=== PATIENT | male | born 1985 | race Caucasian/White ===

== ENCOUNTER 2023-06-16 08:12 | Day surgery (SDC) | payer OTHER ==
[2023-06-16] VITALS (14 sets, daily range): BP systolic 98–150; BP diastolic 59–110
[~2023-06-16] VITALS: Ht 180.3 cm; Wt 115.6 kg
[~2023-06-16 08:12] MED LIST: Benzocaine Oral Spray 0.5ML UD ONE; HYDACE5 PO; IBUP800 PO; KETO10 PO; LORA1 PO; Lactated Ringer's 1,000 ML IV SCH; Midazolam HCl 1MG / ML 2ML Vial ONE; OXYACE5T PO; PANT20; PANT40; Percocet 5-3251 EACH PO; Prinivil10 MG PO; RXOXYACE PO; Silver Sulfadi400 GM TP; propofoL 40 ML IV ONE
--- NOTE | 2023-06-16 09:00 | NUR ---
Ambulatory in Day Surgery. History, Chart, Medications and Allergies reviewed before start of procedure. Lungs clear T/O to Auscultation. Patient confirms NPO status and agrees with scheduled surgery. Pre-Op teaching done. Pt verbalizes understanding. Patient States Post-Procedure ride home has been arranged.
--- NOTE | 2023-06-16 09:33 | NUR ---
06/16/23 0933 Jessica Sherwood HISTORY, CHART, MEDICATIONS AND ALLERGIES REVIEWED BEFORE START OF PROCEDURE. PATIENT CONFIRMS NPO STATUS AND AGREES WITH SCHEDULED PROCEDURE. 3-LEAD EKG REVIEWED WITH PHYSICIAN PRIOR TO START OF PROCEDURE. MONITOR INTACT WITH CONTINUOUS PULSE OXIMETRY,CAPNOGRAPHY, 3-LEAD EKG, INTERMITTENT BP. SUPPLEMENTAL O2 TO BE TITRATED THROUGHOUT PROCEDURE TO MAINTAIN O2 SATURATION ABOVE 90%. PATIENT DETERMINED TO BE ASA APPROPRIATE FOR PROPOFOL SEDATION PRIOR TO START OF PROCEDURE BY .MALLAMPATI CLASS 2 AIRWAY: COMPLETE VISUALIZATION OF THE UVULA.
--- NOTE | 2023-06-16 10:41 | NUR ---
Patient States Post-Procedure ride home has been arranged. Discharge instructions reviewed with patient. Patient verbalizes understanding. Copy given to patient to take home.
== END 2023-06-16 10:40 | disposition home or self-care (01) ==
LOC: ORSCMMR 08:12 → ORD 09:00 → ORSCMMR 09:00
PROVIDERS: Internal Medicine Gastroenterology
PROC: 0DB48ZX Excision of Esophagogastric Junction, Via Natural or Artificial Opening Endoscopic, Diagnostic (ICD-10-PCS; principal; 2023-06-16 09:00)
PROC: 0DB98ZX Excision of Duodenum, Via Natural or Artificial Opening Endoscopic, Diagnostic (ICD-10-PCS; principal; 2023-06-16 09:00)
PROC: 0DB58ZX Excision of Esophagus, Via Natural or Artificial Opening Endoscopic, Diagnostic (ICD-10-PCS; principal; 2023-06-16 09:00)
PROC: 0DB68ZX Excision of Stomach, Via Natural or Artificial Opening Endoscopic, Diagnostic (ICD-10-PCS; principal; 2023-06-16 09:00)
DX: K21.00 Gastro-esophageal reflux disease with esophagitis, without bleeding (principal); I10 Essential (primary) hypertension; Z87.891 Personal history of nicotine dependence; Z79.899 Other long term (current) drug therapy
CPT/HCPCS: 88305; 88342; A9270; J2250; J2704; J7120